=== PATIENT | female | born 1975 | race Caucasian/White ===

== ENCOUNTER 2024-12-22 19:25 | Emergency (ER) | payer OTHER, SELFPAY ==
--- OUTSIDE RECORDS SUMMARY | 2024-12-22 19:28 | XMS_ITS | Clinical Summary ---
Author Organization [employer] [facility] [employer] [facility] Address [place], [place] [address] Care Team Providers Care Pattern Drum Maker Name Role Phone Lauri Fry PsyD, JÚNIOR Unavailable [phone] Magda Zapien MD Primary Care Provi rashad Amira Uriarte RN Unavailable [phone] Bhargav Brennan TELE MARKETING EXECUTIVE Student Unavailable [phone] Allergies Active Allergy Reactions Criticality Noted Date Comments Doxycycline Edema 12/03/2006 Medications escitalopram oxalate (LEXAPRO) 20 mg tablet Take 30 mg by mouth once daily. Active dextroamphetamin e-amphetamine (AdderalL) 20 mg tablet Take 60 mg by mouth two times daily. Active dextroamphetamin e-amphetamine (Adderall XR) 30 mg Extended-Release capsule Take 30 mg by mouth once daily. Active albuterol sulfate 90 mcg/actuation aebs Inhale 90 mcg by mouth once daily if needed. Active Wheat Dextrin (Benefiber) 1 gram chew Chew 3 Each by mouth once daily. Active clotrimazole (LOTRIMIN) 1 % creamIndications :Candidal intertrigo Apply topically to affected area(s) two times daily. 45 g 3 Active multivitamins-ca ftgpl-ojfh-nftou als 27-0.4 mg tab tablet Take 1 Tablet by mouth once daily. Active topiramate (Topamax) 50 mg tablet Take 50 mg by mouth two times daily. Active diazePAM (VALIUM) 5 mg tablet TAKE 1 TABLET BY MOUTH UP TO TWICE DAILY NEEDED FOR PANIC OR ANXIETY 4 Active amLODIPine (NORVASC) 5 mg tabletIndication s:Hypertension, unspecified type Take 1 Tablet (5 mg) by mouth once daily. 90 Tablet 2 4 Active polyethylene glycol-electroly te (GOLYTELY) 236-22.74-6.74 -5.86 gram suspensionIndica tions:Encounter for screening colonoscopy Drink 2 liters (half the bottle) the day before colonoscopy and 2 liters (remaining prep) 6 hours prior to colonoscopy appointment. 4000 mL 5 Active Hospital, Clinic, or Other Facility Administered Medication Ordered Dose Route Frequency Start Date End Date Status etonogestrel subdermal implant (NEXPLANON) 1 EachIndications:Family planning 1 Each Sdrm Q 3 YEARS 12/25/2020 Active Active Problems Problem Noted Date Diagnosed Date Pap smear for cervical cancer screening 04/04/20 24 Overview (04/04/2024): 03/2024 NIL/HPV negative Plan: HPV based testing in 5 years Borderline personality disorder 09/09/2023 Right tennis elbow 03/20/2019 Bipolar 1 disorder 01/28/2019 Neurogenic pain of left foot 03/19/2018 Controlled substance agreement terminated 2016 Overview (05/16/2017): No longer on narcotics ADHD (attention deficit hype ractivity disorder), combined type 10/06/2016 Hx of cannabis abuse 04/22/2015 Generalized anxiety disorder 06/30/2012 Opioid Type Dependence, in Remission 07/22/2009 Resolved Problems Problem Noted Date Diagnosed Date Resolved Date Atherosclerosis of artery of both lower extremities 12/06/2023 12/21/2023 S/P trigger finger release 06/16/2020 0 12/21/2023 Major depressive disorder, r ecurrent episode, moderate 04/19/2019 12/21/2023 Generalized anxiety disorder 04/19/2019 12/07/2023 Trigger finger of left thumb 03/20/2019 12/21/2023 Thumb pain, left 03/20/2019 12/21/2023 Pain in finger of left hand 03/20/2019 12/21/2023 Mood disorder 01/28/2019 12/07/2023 Suicide ideation 01/28/2019 12/21/2023 Moderate episode of recurren t major depressive disorder 01/28/2019 12/21/2023 Controlled substance agreement signed 04/01/2017 01/29/2018 Overview (04/01/2017): Signed 11/29/16 Dr. Ashley Zhu, psychiatry/hc Bipolar II disorder 12/31/2015 12/21/19 24 Hx of opioid abuse 04/22/2015 5 Bipolar I disorder, single m anic episode, moderate 09/04/2014 12/31/2015 Cannabis dependence, continuous 07/22/2009 04/22/2015 Narcotic dependence, episodic use 12/11/2008 04/22/2015 Unspecified hypothyroidism 02/13/2007 0 02/19/2008 Dysthymic disorder 6 Other specified viral warts 01/29/2018 Trigger finger, left ring finger 12/21/2023 Encounters Date Type Department Care Team Description 12/21/2024 Telephone [facility] [address] [place] [address] Clinton Montes MD Appointment 12/18/2024 5:30 PM LOAN INTERVIEWER Orders Only [facility] [address] [place] [address] Lab, [facility] 12/18/2024 Travel 12/15/2024 2:11 PM LOAN INTERVIEWER - 12/15/2024 2:43 PM LOAN INTERVIEWER Emergency [facility] [address] [place] [address] Chi Castillo PA Discharge Disposition: Against Medical Advice or Discontinued Care 12/15/2024 Travel 12/14/2024 6:45 PM LOAN INTERVIEWER Orders Only [facility] [address] [place] [address] Lab, [facility] Lab 12/14/2024 6:05 PM LOAN INTERVIEWER Telemedicine [facility] [address] [place] [address] Alvina Elizalde NP parisitic infection; Telehealth 12/14/2024 Travel from Last 3 Months Immunizations Name Administration Dates Next Due COVID-19 vaccine ([employer] NTech 30mcg/0.3mL) PF, MDV 02/26/2021 Hepatitis B (Adult) 03/06/2007,10/19/2000,1996 Hepatitis B, Unspecified 03/06/2007 Influenza A (H1N1), Inactivated 11/14/2009 Influenza Virus, Unspecified 08/18/2016 Influenza, IIV3 (Age >=3 years) 08/19/20 16,08/28/2013,09/07/2011,2009 Influenza, IIV4 12/06/2023,,10/22/2021,2019,08/20/2019,08/01/2018,10/10/2017,1 12/06/2014 Pneumococcal Poly,23-Valent (Pneumovax) 10/22/2021 Td (Age >=7 Years) 11/19/2000 Tdap 02/01/2023,06/22/2011 Family History Medical History Relation Name Comments Alcohol/Drug Father Heart Disease Father chf Hyperlipidemia Father Hypertension Father Cancer-breast Maternal Aunt Thyroid Disease Maternal Aunt Thyroid Disease Maternal Uncle Hyperlipidemia Mother Thyroid Disease Mother Cancer Other 1 Leukemia Psychiatric illness Other 2 ADHD Anesthesia Problem No Family History Clotting disorder No Family History Relation Name Status Comments Brother Alive x2 Daughter Alive Father (Age 74) Maternal Aunt Maternal Grandfather Maternal Grandmother Maternal Uncle Mother Alive Other 1 Other 2 Paternal Grandfather Paternal Grandmother Social History Tobacco Use Types Packs/Day Years Used Date Smoking Tobacco: Every Day Cigarettes 0.8 36.9 Started: 1987; Last attempted to quit: 02/07/2007 Smokeless Tobacco: Never Tobacco Cessation:Ready to Q uit: No; Counseling Given: Not Answered Comments:1pack/day and smokes Alcohol Use Standard Drinks/Week Comments No 0 (1 standard drink = 0.6 oz pur e alcohol) PHQ-2 Answer Date Recorded PHQ-2 TOTAL SCORE 6 02/10/2024 Social Connections Answer Date Recorded Frequency of Communication with Friends and Fami ly 4 05/31/2023 Financial Resource Strain Answer Date R ecorded Difficulty of Paying Living Expenses Not on file 05/31/2023 Difficulty of Paying Living Expenses 3 05/31/2023 Food Insecurity Answer Date Recorded Worried About Running Out of Food in the Last Ye ar 1 05/31/2023 Transportation Needs Answer Date Record ed Lack of Transportation (Medical) 1 05/31/2023 Housing Stability Answer Date Recorded Unable to Pay for Housing in the Last Year 1 05/31/2023 Interpersonal Safety Answer Date Record ed Are you being hit, kicked, p ushed or yelled at (see row info)? 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 Not on file Not on file Not on file ssdi Not on file Not on file Not on file Obstetrics History Last Filed Vital Signs Vital Sign Reading Time Taken Comments Blood Pressure 136/86 12/15/2024 1:29 PM LOAN INTERVIEWER Pulse 93 12/15/2024 1:29 PM LOAN INTERVIEWER Temperature 36.6 C (97.8 F) 12/15/2024 1:29 PM LOAN INTERVIEWER Respiratory Rate 16 12/15/2024 1:29 PM LOAN INTERVIEWER Oxygen Saturation 98% 12/15/2024 1:29 PM LOAN INTERVIEWER Inhaled Oxygen Concentration - - Weight 91.2 kg (201 lb) 08/14/2024 11:10 PM CDT Height 162.6 cm (5' 4) 08/14/2024 11:10 PM CDT Body Mass Index 34.5 08/14/2024 11:10 PM CDT Plan of Treatment Upcoming Encounters Date Type Department Care Team (Late st Contact Info) Description 01/01/2025 10:40 AM LOAN INTERVIEWER Office Visit [facility] [address] [place] [address] Magda Zapien MD [address] [place] [address] 01/16/2025 8:30 AM CDT Office Visit [facility] [address] [place] [address] Clinton Montes MD [address] [facility] [place] [address] 01/22/2025 10:15 AM CDT Office Visit [facility] [address] [place] [address] Magda Zapien MD [address] [place] [address] Health Maintenance Due Date Last Done Comments Colonoscopy through age 75 2022 Pneumococcal series for age 6-49 (2 of 2 - PCV) 10/22/2022 10/22/2021 Lipids for age 45-75 06/28/2024 06/28/2019 COVID-19 vaccine series (2 - 2023- season) 2024 02/26/2021 Influenza for age 9-49 07/08/2024 , 08/31/2022, 10/22/2021, Additional history exists BMI (ht and wt on same day) for age 18+ 12/04/2024 12/04/2023, 07/15/2023, 02/16/2021, Additional history exists Depression screening for age 12+ 02/09/2025 02/10/2024, 09/15/2023, 09/14/2023, Additional history exists Mammogram for age 45-75 03/01/2025 03/01/2024 Pap test for age 21-65 03/19/2029 , 03/19/2024, 11/26/2016, Additional history exists Tetanus booster 02/01/2033 02/01/2023, 06/07, 11/19/2000 Tdap Completed 02/01/2023, 06/22/2011 HIV for age 15-65 Completed 09/14/2023 Hepatitis C screening for ag e 18-79 Completed 09/14/2023 Medical Devices Implanted Type Area Reliability Technician Device Identifier Shelf Expiration Date Model / Serial / Lot [id number] - [id number] Implanted:Qty: 1 on 04/19/2016 by Galo Sims DPM at [facility] Left: Foot [employer] [id number] / / Description:2.7mm curved caleb clayton left 43mm 5 hole [id number] - [id number] Implanted:Qty: 1 on 04/19/2016 by Galo Sims DPM at [facility] Left: Foot [employer] SV26 / / Description:2.5MM X26MM SCRE W, TITANIUM [id number] - [id number] Implanted:Qty: 1 on 04/19/2016 by Galo Sims DPM at [facility] Left: Foot 40 / / Description:2.7MM LOCKING SC REWS, T7 14MM [id number] - [id number] Implanted:Qty: 2 on 04/19/2016 by Galo Sims DPM at [facility] Left: Foot [employer] 40 / / Description:2.7MM LOCKING SC REWS, T7 16MM [id number] - [id number] Implanted:Qty: 1 on 04/19/2016 by Galo Sims DPM at [facility] Left: Foot [employer] 40 / / Description:2.7MM LOCKING SC REWS, T7 18MM [id number] - [id number] Implanted:Qty: 2 on 04/19/2016 by Galo Sims DPM at [facility] Left: Foot [employer] / / Description:2.0MM X12MM SCRE W [facility]0-p - [id number] Implanted:Qty: 1 on 04/19/2016 by Galo Sims DPM at [facility] Left: Foot [employer] 01/04/2021 [id number] / / [id number] Description:SMART TOE II 19M M/0 DEGREE ANGLE FOR PIP ARTHRODESIS INTRAMEDULLARY ARTHRODESIS IMPLANT Procedures Procedure Name Priority Date/Time Associated Diagnosis Comments STOOL PATHOGEN MULTIPLEX PCR PANEL Routine 12/19/2024 1:50 PM LOAN INTERVIEWER Abnormal stools HPV HIGH RISK Routine 03/19/2024 12:19 PM CDT Encounter for screening for cervical cancer XR MAMMO BILAT SCREENING Routine 03/01/2024 4:19 PM CDT Screening mammogram for breast cancer ANTI HIV 1/2 Routine 09/14/2023 3:50 PM LOAN INTERVIEWER Livedo reticularis ANTI HCV Routine 09/14/2023 3:50 PM LOAN INTERVIEWER Livedo reticularis LIPID PANEL W REFLEX MEASURED LDL Routine 06/28/2019 3:53 PM CDT Elevated blood pressure reading without diagnosis of hypertension from Last 3 Months or Most Recently Relevant to Health Maintenance Results * STOOL PATHOGEN MULTIPLEX PCR PANEL [[id number]] (12/19/2024 1:50 PM LOAN INTERVIEWER) Campylobacter NOT Detected NOT Detected 12/21/2024 1:00 AM [facility] Salmonella NOT Detected NOT Detected 12/21/2024 1:00 AM [facility] Shigella NOT Detected NOT Detected 12/21/2024 1:00 AM LOAN INTERVIEWER [facility] Vibrio NOT Detected NOT Detected 12/21/2024 1:00 AM LOAN INTERVIEWER [facility] Yersinia Enterocolitica NOT Detected NOT Detected 12/21/2024 1:00 AM LOAN INTERVIEWER [facility] Shiga Toxin 1 NOT Detected NOT Detected 12/21/2024 1:00 AM [facility] Shiga Toxin 2 NOT Detected NOT Detected 12/21/2024 1:00 AM [facility] Norovirus NOT Detected NOT Detected 12/21/2024 1:00 AM [facility] Rotavirus NOT Detected NOT Detected 12/21/2024 1:00 AM LOAN INTERVIEWER [facility] Stool STOOL SPECIMEN / Unknown Non-Blood / Unknown 12/19/2024 1:50 PM LOAN INTERVIEWER 12/14/2024 8:00 PM LOAN INTERVIEWER Narrative [facility] - 12/21/2024 1:00 AM LOAN INTERVIEWER This test is a Culture Independent Diagnostic Test (CIDT) therefore isolates are not available for susceptibility testing. Antibiotic treatment is often contraindicated and may be detrimental in cases of enteric infections, thus routine susceptibility testing is not recommended. Alvina Elizalde NP MICROBIOLOGY Final Result Performing Organization Address [facility] Co de Phone Number [facility] [address] [place] [address], * HPV HIGH RISK (03/19/2024 12:19 PM CDT) TYPE 16 Negative Negative 03/21/2024 4:51 PM CDT [facility] TYPE 18 Negative Negative 03/21/2024 4:51 PM CDT [facility] OTHER HIGH RISK TYPES Negative Negative 03/21/2024 4:51 PM CDT [facility] Other (Cervical) Non-Blood / Unknown 03/19/2024 12:19 PM CDT 03/20/2024 11:26 AM CDT Narrative [facility] - 03/21/2024 4:51 PM CDT HPV types 16, 18, 31, 33, 35, 39, 45, 51, 52, 56, 58, 59, 66 and 68 DNA were undetectable or below the pre-set threshold. Methodology: Aayush Simeon 4800 HPV Test us Magda Zapien MD MICROBIOLOGY Fin al Result Performing Organization Address City/[facility]/ZIP Co de Phone Number [facility] [address] [place] [id number], * XR MAMMO BILAT SCREENING (03/01/2024 4:19 PM CDT) Anatomical Region Laterality Modality BREASTS, Breast Left, Breast Right Bilateral Mammography Impressions 03/02/2024 8:03 AM CDT There is no radiographic evidence for malignancy. Recommend annual mammograms. MAMMOGRAM ASSESSMENT: ACR 1 Negative PATIENTS: You will also receive a letter with your examination results in an easy to read format. If you have questions about your results, please contact your referring provider. Narrative 03/02/2024 8:03 AM CDT For Patients: As a result of the Century Cures Act, medical imaging exams and procedure reports are released immediately into your electronic medical record. You may view this report before your referring provider. If you have questions, please contact your health care provider. XR MAMMO BILAT SCREENING [[id number]] CLINICAL HISTORY: This is an asymptomatic 48 y.o. patient. INDICATION FOR EXAM: Mammogram Screening. TECHNIQUE: CC & MLO views were obtained. This study was evaluated with the assistance of Computer-Aided Detection. COMPARISON FILM: This is a baseline study. FINDINGS: The breasts have scattered areas of fibroglandular density. There are no dominant masses, suspicious micro calcifications or areas of architectural distortion. Magda Zapien MD MAMMO Fin al Result * ANTI HCV (09/14/2023 3:50 PM LOAN INTERVIEWER) HEPATITIS C ANTIBODY Non-Reacti ve Non-React omer 09/15/2023 5:51 AM LOAN INTERVIEWER [facility] Comment:Please note, per www .CDC.gov: If a patient is known to be at high risk of HCV infection, or is symptomatic, and the physician's suspicion of HCV infection is high, HCV RNA testing is often employed and is of diagnostic value, even after an initial negative anti-HCV test result. Blood BLOOD SPECIMEN / Unknown Venipuncture / Unknown 09/14/2023 3:50 PM LOAN INTERVIEWER 09/14/2023 3:52 PM LOAN INTERVIEWER Austyn Jones DO SEND OUTS Final Resul t [facility] [address] [place] [address], * ANTI HIV 1/2 (09/14/2023 3:50 PM LOAN INTERVIEWER) HIV-1/HIV-2 SCREEN Non-Reacti ve Non-Reacti ve 09/15/2023 6:00 AM LOAN INTERVIEWER [facility] Comment:HIV-1 p24 and HIV-1/ HIV-2 Ab Not Detected. Blood BLOOD SPECIMEN / Unknown Venipuncture / Unknown 09/14/2023 3:50 PM LOAN INTERVIEWER 09/14/2023 3:52 PM LOAN INTERVIEWER us Austyn Jones DO SEND OUTS Final Resul t [facility] [address] [place] [address], * (ABNORMAL) LIPID PANEL W REFLEX MEASURED LDL (06/28/2019 3:53 PM CDT) CHOLESTEROL,TOTAL 209(H) 100 - 199 mg/dL 06/28/2019 4:45 PM CDT [facility] TRIGLYCERIDES 103 <150 mg/dL 06/28/2019 4:45 PM CDT [facility] HDL CHOLESTEROL 46 >40 mg/dL 9 4:45 PM CDT [facility] NON-HDL CHOLESTEROL 163(H) <145 mg/dl 06/28/2019 4:45 PM CDT [facility] CHOL/HDL RATIO 4.54(H) <4.50 06/28/2019 4:45 PM CDT [facility] LDL CHOLESTEROL 142(H) <=130 mg/dL 06/28/2019 4:45 PM CDT [facility] PROVIDER ORDERED STATUS RANDOM 06/28/2019 4:45 PM CDT [facility] Blood BLOOD SPECIMEN / Unknown Venipuncture / Unknown 06/28/2019 3:53 PM CDT 06/28/2019 3:53 PM CDT us Jamal Wilson MD CHEMISTRY Final Result [facility] [address] [place] [address] from Last 3 Months or Most Recently Relevant to Health Maintenance Insurance BLUE CROSS OF NON-AL-ITS MEDICARE ADVANTAGE MR MEDICARE PART A HB ONLY Advance Directives * Full Code (Latest Code Status on File) Date Activated Date Inactivated Comments 06/03/2020 9:05 AM 06/03/2020 1:33 PM * Full Code Date Activated Date Inactivated Comments 09/24/2019 9:02 AM 09/24/2019 4:06 PM * Full Code Date Activated Date Inactivated Comments 01/27/2019 6:51 PM 02/01/2019 7:17 PM * Full Code Date Activated Date Inactivated Comments 10/05/2016 2:49 PM 10/06/2016 2:14 PM * Full Code Date Activated Date Inactivated Comments 04/19/2016 3:17 PM 04/19/2016 11:39 PM Question Answer Comments Code Status Discussion: Not Discussed Care Teams Pattern Drum Maker Relationship Specialty Start Date End Date Magda Zapien MD [address] [place] [address] PCP - General Family Practice 06/07/23 Lauri Fry, [employer]ro[employer], LP [address] [place] [address] Licensed Psychologist 06/20/12 Amira Uriarte, KANDY [address] [place] [address] Registered Nurse Registered Nurse 01/04/24 Bhargav Brennan, TELE MARKETING EXECUTIVE Student [address] [place] [address] Psychiatry 01/13/24
[2024-12-22 19:36] VITALS: BP 150/80; PULSE 89; RESP 18; TEMP 36.7; O2SAT 99; BMI 34.3
--- NOTE | 2024-12-22 20:00 | ED.GENADULT ---
HPI - General Adult General Chief complaint: Abdominal Pain Stated complaint: Potential damage to intestinal tract Time Seen by Provider: 12/22/24 20:00 History of Present Illness HPI narrative: CC: Rectal Clots, Abdominal Cramping pt. did enema today and had clot come out. abdominal cramping. denies fevers, n/v/, diarrhea. 49 year old woman presenting to the Department with numerous complaints. She is carefully recorded in a notebook a history at least as far back as November 28. Around this time she had given herself an enema. Subsequently began to produce some vaginal bleeding as I understand it with repeated quarter-size clots or so. She said it seemed atypical would not have corresponded with her. Did ultimately subside and then began bleeding again. She does struggle with what sounds like chronic fatigue. Does understand why she is so tired. In early December I believe week later did have a rather unusual bowel movement where she was concerned there might be worms in it. Looked like pile of mushrooms. Worried she might have parasites may be from her who has had a stroke and struggles with fecal incontinence. She subsequently had an appointment with a virtual provider. Used her 's fecal collection kit; he however has chronic diarrhea, and took it in and with orders placed by the virtual physician. Was later informed that the clinic could not process what she had actually brought in. Early December also had a dental appointment. Had a dental extraction and just finished a course of amoxicillin for an apparent dental abscess. She has shocks of pain throughout her abdomen various locations and even mid sternum or left neck/jaw. As gestured one of these areas was the area I believe of the extraction. She notes she has [place] areas on Her body corresponding with these pains. Has not noted a fever. Regarding lab work, notes that she typically has elevated lymphocytes. Also mentions that feels that has unusually dry hands. I believe dry mouth as well. She did go to area emergency department about a week ago but after long wait she left. As noted it appears that she has had years of abdominal pain and has had evaluations at various times she reports feeling often dismissed. Does not sound as though gets regular quality sleep. Medications currently include amlodipine, Lexapro and Celexa she says, Adderall, Topamax for mood stabilization I see venlafaxine also listed. Valium she also notes as occasional medication for when I feel like I want to burn the house down also takes probiotic Related Data Home Medications ?Medication ?Instructions ?Recorded ?Confirmed amlodipine 5 mg tablet 5 mg PO DAILY 12/22/24 12/22/24 dextroamphetamine-amphetamine 20 1 tab PO BID 12/22/24 12/22/24 mg tablet dextroamphetamine-amphetamine ER 1 cap PO QAM 12/22/24 12/22/24 30 mg 24hr capsule,extend release escitalopram oxalate 20 mg tablet 30 mg PO DAILY 12/22/24 12/22/24 topiramate 50 mg tablet 50 mg PO QAM 12/22/24 12/22/24 venlafaxine 75 mg capsule,extended 75 mg PO DAILY 12/22/24 12/22/24 release 24 hr Previous Rx's ?Medication ?Instructions ?Recorded omeprazole 40 mg capsule,delayed 40 mg PO DAILY #15 caps 12/23/24 release Allergies Allergy/AdvReac Type Severity Reaction Status Date / Time No Known Drug Allergies Allergy Verified 12/22/24 19:38 Review of Systems Status of ROS: Reports: 6 or more systems reviewed and unremarkable except as noted in History and below [facility] Medical History ADHD (attention deficit hyperactivity disorder) ?F90.9 - Attention-deficit hyperactivity disorder, unspecified type (ICD-10) Bipolar 1 disorder ?F31.9 - Bipolar disorder, unspecified (ICD-10) Borderline personality disorder ?F60.3 - Borderline personality disorder (ICD-10) ALEXANDRA (generalized anxiety disorder) ?F41.1 - Generalized anxiety disorder (ICD-10) Dysthymic disorder ?F34.1 - Dysthymic disorder (ICD-10) Surgical History S/P right knee arthroscopy ?Z98.890 - Other specified postprocedural states (ICD-10) History of carpal tunnel release ?Z98.890 - Other specified postprocedural states (ICD-10) S/P bunionectomy ?Z98.890 - Other specified postprocedural states (ICD-10) S/P trigger finger release ?Z98.890 - Other specified postprocedural states (ICD-10) Social History Smoking Status: Current every day smoker What tobacco products do you use: cigarettes Second hand tobacco smoke exposure: Yes How often do you have a drink containing alcohol: never AUDIT-C Alcohol total score: 0 Non-prescribed substance use: denies use Exam Narrative: Exam Narrative: Appears concerned. Verbose. Skin is warm and dry. She has areas [place] degree marker various locations on her belly and also right low back. She is sore to palpation of bilateral SI joints. Gabbi's however is negative. Abdomen on initial palpation is mildly uncomfortable but with repeat exam is quite benign. Soft. Normoactive bowel sounds. No masses appreciated. Lungs appear clear. Heart in regular rate and rhythm. Oropharynx is sticky. Has a bottle of Coke Zero close by. Is well-perfused in extremities. No lower extremity edema. Hands look somewhat erythematous, strong. Look to have been exposed to cold, chapped. Skin otherwise with various tattoos. Const: Vital Signs, click to edit/add: Vital Signs - 24 hr 12/22/24 19:36 12/22/24 20:39 Pulse Rate [Right Pulse Oximeter] 89 Respiratory Rate 18 Blood Pressure [Ri ght Upper Arm] 150/80 H Pulse Oximetry 99 99 Oxygen Delivery Me thod Room Air Documenting provider has reviewed patient's vital signs: yes Course Vital Signs Vital signs: Initial Vital Signs Temperature 98.1 F 12/22/24 19:36 Temperature Source Temporal Artery Scan 12/22/24 19:36 Pulse Rate 89 12/22/24 19:36 Respiratory Rate 18 12/22/24 19:36 Blood Pressure 150/80 H 12/22/24 19:36 Blood Pressure Mean 103 12/22/24 19:36 Blood Pressure Position Sitting 12/22/24 19:36 Pulse Oximetry 99 12/22/24 19:36 Oxygen Delivery Method Room Air 12/22/24 19:36 Vital Signs Temperature 98.1 F 12/22/24 19:36 Pulse Rate 89 12/22/24 19:36 Respiratory Rate 18 12/22/24 19:36 Blood Pressure 150/80 H 12/22/24 19:36 Pulse Oximetry 99 12/22/24 19:36 Oxygen Delivery Method Room Air 12/22/24 19:36 Temperature 98.1 F 12/23/24 01:56 Pulse Rate 81 12/23/24 01:56 Respiratory Rate 18 12/23/24 01:56 Blood Pressure 125/70 12/23/24 01:56 Pulse Oximetry 99 12/23/24 00:00 Oxygen Delivery Method Room Air 12/23/24 00:00 Medical Decision Making MDM Narrative Medical decision making narrative: Appears to have more struggles related to chronic fatigue and irritable bowel. Might be medication related considering SSRIs. She does mention that she has as of yesterday I believe scheduled a colonoscopy. This has never occurred before. I think this is an excellent start. She is thinking maybe she needs some imaging of her abdomen when I inquire about what more I can do. Unclear when had last laboratory evaluation I ask her about doing a pelvic exam looking for bleeding that she had noted but she declines this noting that she had a recent normal Pap at least in September of last year. Does not appear that this bleeding is excessive at this time. I inquired about but comes whether not she would like with some concern of all anoscopy exam is or soon concern of rectal bleeding she described as well and she says no; she states she can feel a bump there she thinks all might be related? This is after I inquired about hemorrhoids. Offered IV hydration. Ultimately not done. With constellation of symptoms I proposed querying labs before trying to direct imaging. Labs were unremarkable. Pending was vitamin-D level and stool sample should she choose to bring one in. Slept during time in the emergency department. Appeared more relaxed, comfortable when woken. Discussed lack of findings and potential differential. Is amenable to proceed with colonoscopy and outpatient workup. See patient discharge plan for further discussion I would offer you reassurance at this point based on your labs and physical exam. I am happy you have good relationship with Dr. Montes and have already arranged for colonoscopy. I think that is ideal imaging for your concerns. Please follow-up with your primary care provider as well to discuss next steps in evaluation. I would do medication review particularly as you mentioned you are taking 2 SSRIs. As discussed can certainly prescribe proton pump inhibitor like omeprazole for 2 weeks that you might try and reassess at that point. You might have some degree of sacral iliac joint pain. See handout for some exercises/treatment that might be beneficial. Was a pleasure taking care of you today. Lab Data Lab results reviewed: Yes I reviewed the patient's lab results Labs: Lab Results 12/22/24 12/22/24 Range/Units 20:33 20:37 WBC 11.22 H (4.50-11.00) K/uL RBC 4.30 (4.00-5.20) m/uL Hgb 12.8 (12.0-16.0) gm/dL Hct 38.1 (33.0-51.0) % MCV 89 (80-100) fL MCH 30 (26-34) pg MCHC 34 (32-36) gm/dL RDW Coeff of Zi 13.5 (11.5-15.5) % Plt Count 239 (140-440) K/uL Neut % (Auto) 66.4 (42.0-72.0) % Lymph % (Auto) 25.3 (20-44) % Hughes % (Auto) 5.9 (0.0-11.0) % Eos % (Auto) 1.9 (0.0-7.0) % Baso % (Auto) 0.4 (0.0-3.0) % Neut # (Auto) 7.50 H (1.7-7.0) K/uL Lymph # (Auto) 2.80 (0.90-2.90) K/uL Hughes # (Auto) 0.70 (0.00-0.90) K/UL Eos # (Auto) 0.20 (0.00-0.50) K/uL Baso # (Auto) 0.00 (0.00-0.30) K/uL Abs Immat Gran (auto) 0.00 (0.00-0.30) K/uL Imm/Tot Granulo (auto) 0.1 % ESR 11 (2-20) mm/hr Sodium 137 (135-149) mmol/L Potassium 3.5 L (3.6-5.1) mmol/L Chloride 104 (96-114) mmol/L Carbon Dioxide 25 (20-32) mmol/L Anion Gap 8 (7-15) mEq/L BUN 14 (5-24) mg/dL Creatinine 0.8 (0.5-1.5) mg/dL Estimated Creat Clear 75.07 Estimated GFR 91 ml/min Glucose 94 (60-115) mg/dL Calcium 9.0 (8.4-10.6) mg/dL Magnesium 2.2 (1.5-2.6) mg/dL Total Bilirubin 0.4 (0.1-1.5) mg/dL Direct Bilirubin 0.2 (0.0-0.5) mg/dL AST 26 (12-35) U/L ALT 27 (4-35) U/L Alkaline Phosphatase 57 (40-150) U/L C-Reactive Protein 0.6 (0.5-1.0) mg/dL Total Protein 7.1 (6.0-8.3) g/dL Albumin 4.4 (3.3-5.0) g/dL Lipase 129 (23-300) U/L 25-OH Vitamin D Total 45 (30-80) ng/mL TSH 2.460 (0.270-4.20) uIU/mL Lab Acknowledgement Test Added Discharge Plan Discharge Clinical Impression: Dysfunctional uterine bleeding, Irritable bowel, Fatigue Patient Disposition: Home, Self-Care Condition: Stable Additional Instructions: I would offer you reassurance at this point based on your labs and physical exam. I am happy you have good relationship with Dr. Montes and have already arranged for colonoscopy. I think that is ideal imaging for your concerns. Please follow-up with your primary care provider as well to discuss next steps in evaluation. I would do medication review particularly as you mentioned you are taking 2 SSRIs. As discussed can certainly prescribe proton pump inhibitor like omeprazole for 2 weeks that you might try and reassess at that point. You might have some degree of sacral iliac joint pain. See handout for some exercises/treatment that might be beneficial. Was a pleasure taking care of you today. Prescriptions: New omeprazole 40 mg capsule,delayed release(DR/EC) 40 mg PO DAILY Qty: 15 0RF No Action venlafaxine 75 mg capsule,extended release 24hr 75 mg PO DAILY amlodipine 5 mg tablet 5 mg PO DAILY dextroamphetamine-amphetamine 20 mg tablet 1 tab PO BID dextroamphetamine-amphetamine 30 mg capsule,extended release 24hr 1 cap PO QAM escitalopram oxalate 20 mg tablet 30 mg PO DAILY topiramate 50 mg tablet 50 mg PO QAM Follow Up/Referrals: Provider,Not a Local [Non-Staff] - Stand Alone Forms: [employer] Info Instructions
[2024-12-22 20:39] VITALS: O2SAT 99
[2024-12-22 21:00] LABS: Basophils Percent Auto 0.4 % (0.0-3.0); Eosinophils Percent Auto 1.9 % (0.0-7.0); Hematocrit 38.1 % (33.0-51.0); Hemoglobin* 12.8 gm/dL (12.0-16.0); Immature Granulocytes Pct Auto 0.1 %; Lymphocytes Percent Auto 25.3 % (20-44); Mean Corpuscular HGB Conc 34 gm/dL (32-36); Mean Corpuscular Hemoglobin 30 pg (26-34); Mean Corpuscular Volume 89 fL (80-100); Monocytes Percent Auto 5.9 % (0.0-11.0); Neutrophils Percent Auto 66.4 % (42.0-72.0); Platelet Count* 239 K/uL (140-440); RDW Coefficient of Variation % 13.5 % (11.5-15.5); White Blood Count* 11.22 K/uL (4.50-11.00)
[2024-12-22 21:12] LABS: Albumin* 4.4 g/dL (3.3-5.0); Chloride* 104 mmol/L (96-114)
[2024-12-22 21:13] LABS: Potassium* 3.5 mmol/L (3.6-5.1); Sodium* 137 mmol/L (135-149)
[2024-12-22 21:15] LABS: Alkaline Phosphatase* 57 U/L (40-150); Anion Gap 8 mEq/L (7-15); Aspartate Amino Transferase* 26 U/L (12-35); Bilirubin Direct* 0.2 mg/dL (0.0-0.5); Bilirubin Total* 0.4 mg/dL (0.1-1.5); Blood Urea Nitrogen* 14 mg/dL (5-24); Carbon Dioxide* 25 mmol/L (20-32); Creatinine* 0.8 mg/dL (0.5-1.5); Est. Creatinine Clearance* 75.07; Estimated Glomerular Filt Rate 91 ml/min; Glucose* 94 mg/dL (60-115); Total Protein* 7.1 g/dL (6.0-8.3)
[2024-12-22 21:16] LABS: Alanine Aminotransferase* 27 U/L (4-35); Magnesium* 2.2 mg/dL (1.5-2.6)
--- OUTSIDE RECORDS SUMMARY | 2024-12-22 21:16 | XMS_ITS | Clinical Summary ---
Author Organization [facility] Address [place], [place] [address] Care Team Providers Care Refractory Furnace Designer Name Role Phone Lauri Fry PsyD, JNÚIOR Unavailable [phone] Magda Zapien MD Primary Care Provi rashad Amira Uriarte RN Unavailable [phone] Bhargav Brennan WAGON DRILL OPERATOR Student Unavailable + [phone] Allergies Active Allergy Reactions Criticality Noted Date [...] times daily. 45 g 3 Active multivitamins-ca oovpi-skjc-dhafj als 27-0.4 mg tab tablet Take 1 [...] Type Department Care Team Description 12/21/2024 Telephone [facility] [address] [place] [address] Clinton Montes MD Appointment 12/18/2024 5:30 PM DRY END TESTER Orders Only [facility] [address] [place] [address] Lab, [facility] 12/18/2024 Travel 12/15/2024 2:11 PM DRY END TESTER - 12/15/2024 2:43 PM DRY END TESTER Emergency [facility] [address] [place] [address] Chi Castillo PA Discharge Disposition: Against Medical Advice or Discontinued Care 12/15/2024 Travel 12/14/2024 6:45 PM DRY END TESTER Orders Only [facility] [address] [place] [address] Lab, 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 Not on file Not on file Not on file ssdi Not on file Not on file Not on file Obstetrics History Last Filed Vital Signs Vital Sign Reading Time Taken Comments Blood Pressure 136/86 12/15/2024 1:29 PM DRY END TESTER Pulse 93 12/15/2024 1:29 PM DRY END TESTER Temperature 36.6 C (97.8 F) 12/15/2024 1:29 PM DRY END TESTER Respiratory Rate 16 12/15/2024 1:29 PM DRY END TESTER Oxygen Saturation 98% 12/15/2024 1:29 PM DRY END TESTER Inhaled Oxygen Concentration - - Weight 91.2 kg (201 lb) 08/14/2024 11:10 PM CDT Height 162.6 cm (5' 4) 08/14/2024 11:10 PM CDT Body Mass Index 34.5 08/14/2024 11:10 PM CDT Plan of Treatment Upcoming Encounters Date Type Department Care Team (Late st Contact Info) Description 01/01/2025 10:40 AM DRY END TESTER Office Visit [facility] [address] [place] [address] Magda Zapien MD [address] [place] [address] 01/16/2025 8:30 AM CDT Office Visit [facility] [address]ated [place] [address] Clinton Montes MD [address] [facility] [place] [address] 01/22/2025 10:15 AM CDT Office Visit [facility] [address] [place] [address] Magda Zapien MD [address] [place] [address] Health Maintenance Due Date Last Done Comments [...] Completed 09/14/2023 Medical Devices Implanted Type Area Vocational Auto Body Instructor Device Identifier Shelf Expiration Date Model / Serial / Lot [id number] - [id number] Implanted:Qty: 1 on 04/19/2016 by Galo Sims DPM at [facility] Left: Foot [employer] [id number] / / Description:2.7mm curved caleb clayton left 43mm 5 hole Msv26 - [id number] Implanted:Qty: 1 on 04/19/2016 by Galo Sims DPM at [facility] Left: Foot [employer] SV26 / / Description:2.5MM X26MM SCRE W, TITANIUM [id number] - [id number] Implanted:Qty: 1 on 04/19/2016 by Galo Sims DPM at [facility] Left: Foot 40 / / Description:2.7MM LOCKING SC REWS, T7 14MM [id number] - [id number] Implanted:Qty: 2 on 04/19/2016 by Galo Sims DPM at [facility] Left: Foot [employer] 40 / / Description:2.7MM LOCKING SC REWS, T7 16MM [id number] - [id number] Implanted:Qty: 1 on 04/19/2016 by Galo Sims DPM at [facility] Left: Foot [employer] 40 / / Description:2.7MM LOCKING SC REWS, T7 18MM [id number] - [id number] Implanted:Qty: 2 on 04/19/2016 by Galo Sims DPM at [facility] Left: Foot [employer] / / Description:2.0MM X12MM SCRE W [facility]0-p - [id number] Implanted:Qty: 1 on 04/19/2016 by Galo Sims DPM at [facility] Left: Foot [employer] 01/04/2021 [id number] / / [id number] Description:SMART TOE II 19M M/0 DEGREE ANGLE FOR PIP ARTHRODESIS INTRAMEDULLARY ARTHRODESIS IMPLANT Procedures Procedure Name Priority Date/Time Associated Diagnosis Comments STOOL PATHOGEN MULTIPLEX PCR PANEL Routine 12/19/2024 1:50 PM DRY END TESTER Abnormal stools HPV HIGH RISK Routine 03/19/2024 12:19 PM CDT Encounter for screening for cervical cancer XR MAMMO BILAT SCREENING Routine 03/01/2024 4:19 PM CDT Screening mammogram for breast cancer ANTI HIV 1/2 Routine 09/14/2023 3:50 PM DRY END TESTER Livedo reticularis ANTI HCV Routine 09/14/2023 3:50 PM DRY END TESTER Livedo reticularis LIPID PANEL W REFLEX MEASURED LDL Routine 06/28/2019 3:53 PM CDT Elevated blood pressure reading without diagnosis of hypertension from Last 3 Months or Most Recently Relevant to Health Maintenance Results * STOOL PATHOGEN MULTIPLEX PCR PANEL [[id number]] (12/19/2024 1:50 PM DRY END TESTER) Campylobacter NOT Detected NOT Detected 12/21/2024 1:00 AM [facility] Salmonella NOT Detected NOT Detected 12/21/2024 1:00 AM [facility] Shigella NOT Detected NOT Detected 12/21/2024 1:00 AM DRY END TESTER [facility]- N[facility]AL LAB[facility]ATORY Vibrio NOT Detected NOT Detected 12/21/2024 1:00 AM DRY END TESTER [facility] Yersinia Enterocolitica NOT Detected NOT Detected 12/21/2024 1:00 AM DRY END TESTER [facility] Shiga Toxin 1 NOT Detected NOT Detected 12/21/2024 1:00 AM [facility] Shiga Toxin 2 NOT Detected NOT Detected 12/21/2024 1:00 AM [facility] Norovirus NOT Detected NOT Detected 12/21/2024 1:00 AM [facility] Rotavirus NOT Detected NOT Detected 12/21/2024 1:00 AM DRY END TESTER [facility] Stool STOOL SPECIMEN / Unknown Non-Blood / Unknown 12/19/2024 1:50 PM DRY END TESTER 12/14/2024 8:00 PM DRY END TESTER Narrative [facility] - 12/21/2024 1:00 AM DRY END TESTER This test is a Culture Independent Diagnostic Test (CIDT) therefore isolates are not available for susceptibility testing. Antibiotic treatment is often contraindicated and may be detrimental in cases of enteric infections, thus routine susceptibility testing is not recommended. Alvina Elizalde NP MICROBIOLOGY Final Result Performing Organization Address [facility] Co de Phone Number [facility] [address] [place] [address], * HPV HIGH RISK (03/19/2024 12:19 PM CDT) TYPE 16 Negative Negative 03/21/2024 4:51 PM CDT [facility] TYPE 18 Negative Negative 03/21/2024 4:51 PM CDT [facility] OTHER HIGH RISK TYPES Negative Negative 03/21/2024 4:51 PM CDT [facility] Other (Cervical) Non-Blood / Unknown 03/19/2024 12:19 PM CDT 03/20/2024 11:26 AM CDT Narrative [facility] - 03/21/2024 4:51 PM CDT HPV types 16, 18, 31, 33, 35, 39, 45, 51, 52, 56, 58, 59, 66 and 68 DNA were undetectable or below the pre-set threshold. Methodology: Aayush Simeon 4800 HPV Test us Magda Zapien MD MICROBIOLOGY Fin al Result Performing Organization Address City/[facility]/ZIP Co de Phone Number [facility] [address] [place] [id number], * XR MAMMO BILAT SCREENING (03/01/2024 4:19 [...] health care provider. XR MAMMO BILAT SCREENING [[id number]] CLINICAL HISTORY: This is an asymptomatic 48 [...] Result * ANTI HCV (09/14/2023 3:50 PM DRY END TESTER) HEPATITIS C ANTIBODY Non-Reacti ve Non-React omer 09/15/2023 5:51 AM DRY END TESTER [facility] Comment:Please note, per www .CDC.gov: If a patient is known to be at high risk of HCV infection, or is symptomatic, and the physician's suspicion of HCV infection is high, HCV RNA testing is often employed and is of diagnostic value, even after an initial negative anti-HCV test result. Blood BLOOD SPECIMEN / Unknown Venipuncture / Unknown 09/14/2023 3:50 PM DRY END TESTER 09/14/2023 3:52 PM DRY END TESTER Austyn Jones DO SEND OUTS Final Resul t [facility] [address] [place] [address], * ANTI HIV 1/2 (09/14/2023 3:50 PM DRY END TESTER) HIV-1/HIV-2 SCREEN Non-Reacti ve Non-Reacti ve 09/15/2023 6:00 AM DRY END TESTER [facility] Comment:HIV-1 p24 and HIV-1/ HIV-2 Ab Not Detected. Blood BLOOD SPECIMEN / Unknown Venipuncture / Unknown 09/14/2023 3:50 PM DRY END TESTER 09/14/2023 3:52 PM DRY END TESTER us Austyn Jones DO SEND OUTS Final Resul t [facility] [address] [place] [address], * (ABNORMAL) LIPID PANEL W REFLEX MEASURED LDL (06/28/2019 3:53 PM CDT) CHOLESTEROL,TOTAL 209(H) 100 - 199 mg/dL 06/28/2019 4:45 PM CDT [facility] TRIGLYCERIDES 103 <150 mg/dL 06/28/2019 4:45 PM CDT [facility] HDL CHOLESTEROL 46 >40 mg/dL 9 4:45 PM CDT [facility] NON-HDL CHOLESTEROL 163(H) <145 mg/dl 06/28/2019 4:45 PM CDT [facility] CHOL/HDL RATIO 4.54(H) <4.50 06/28/2019 4:45 PM CDT [facility] LDL CHOLESTEROL 142(H) <=130 mg/dL 06/28/2019 4:45 PM CDT [facility] PROVIDER ORDERED STATUS RANDOM 06/28/2019 4:45 PM CDT [facility] Blood BLOOD SPECIMEN / Unknown Venipuncture / Unknown 06/28/2019 3:53 PM CDT 06/28/2019 3:53 PM CDT us Jamal Wilson MD CHEMISTRY Final Result [facility] [address] [place] [address] from Last 3 Months or Most Recently Relevant to Health Maintenance Insurance BLUE CROSS OF NON-RI-ITS MEDICARE ADVANTAGE MR MEDICARE PART A HB [...] Code Status Discussion: Not Discussed Care Teams Refractory Furnace Designer Relationship Specialty Start Date End Date Magda Zapien MD [address] [place] [address] PCP - General Family Practice 06/07/23 Lauri Fry, AroldoyD, LP [address] [place] [address] Licensed Psychologist 06/20/12 Amira Uriarte, KNADY [address] [place] [address] Registered Nurse Registered Nurse 01/04/24 Bhargav Brennan, WAGON DRILL OPERATOR Student [address] [place] [address] Psychiatry 01/13/24
[2024-12-22 21:23] LABS: Slide Review Reflex No
[2024-12-22 21:49] LABS: Lipase* 129 U/L (23-300)
[2024-12-22 21:53] LABS: C Reactive Protein* 0.6 mg/dL (0.5-1.0)
[2024-12-22 22:00] VITALS: BP 135/74; PULSE 85; RESP 18; TEMP 36.7; O2SAT 99
[2024-12-22 23:03] LABS: Erythrocyte SedimentationRate* 11 mm/hr (2-20)
[2024-12-23] VITALS: BP 125/70; PULSE 81; RESP 18; TEMP 36.7; O2SAT 99
[2024-12-23 01:56] VITALS: BP 125/70; PULSE 81; RESP 18; TEMP 36.7
[2024-12-24 04:38] LABS: Vitamin D 25 Hydroxy* 45 ng/mL (30-80)
[2024-12-31 12:17] LABS: Ova and Parasite, Fecal Negative (Negative)
== END 2024-12-23 01:56 | disposition home or self-care (01) ==
PROVIDERS: Emergency Provider Family Medicine; PCP Family Medicine
DX: N93.8 Other specified abnormal uterine and vaginal bleeding (principal); K58.9 Irritable bowel syndrome, unspecified; R53.83 Other fatigue; Z79.899 Other long term (current) drug therapy
CPT/HCPCS: 36415; 80048; 80076; 82306; 83690; 83735; 84443; 85025; 85651; 86140; 87045; 87046; 87177; 87209; 87427; 94761; 99283; 99284

== ENCOUNTER 2025-01-16 08:38 | Outpatient (CLI) | payer OTHER, SELFPAY ==
--- NOTE | 2025-01-16 10:44 | P.ANES_ITS ---
Anesthesia Charges Start Date/Time Anesthesia Start Date: 01/16/25 Anesthesia Start Time: 10:01 Stop Date/Time Anesthesia Stop Date: 01/16/25 Anesthesia Stop Time: 10:34 Coding CPT Codes CPT Codes: ANES LWR INTST NDSC NOS - 69738 ([id number]) P3 - PATIENT W/SEVERE SYS DISEASE, QX - DISHTANK OPERATOR SVC W/ MD MED DIRECTION, QK - FILTER CLOTH MAKER 2-4 CNCRNT ANES PROC
--- NOTE | 2025-01-16 10:44 | W.ANESCHARGE ---
Anesthesia Charges Start Date/Time Anesthesia Start Date: 01/16/25 Anesthesia Start Time: 10:01 Stop Date/Time Anesthesia Stop Date: 01/16/25 Anesthesia Stop Time: 10:34 Coding CPT Codes CPT Codes: ANES LWR INTST NDSC NOS - 30945 ([id number]) P3 - PATIENT W/SEVERE SYS DISEASE, QX - PHLEBOTOMIST MEDICAL LAB ASSISTANT SVC W/ MD MED DIRECTION, QK - SEEDLING SORTER 2-4 CNCRNT ANES PROC
--- NOTE | 2025-01-16 11:26 | P.ANES_ITS ---
Anesthesia Charges Start Date/Time Anesthesia Start Date: 01/16/25 Anesthesia Start Time: 10:01 Stop Date/Time Anesthesia Stop Date: 01/16/25 Anesthesia Stop Time: 10:34 Coding CPT Codes CPT Codes: ANES LWR INTST NDSC NOS - 86514 ([id number]) QK - STEAM DRIER TENDER 2-4 CNCRNT ANES PROC, QX - CHOCOLATE PACKER SVC W/ MED DIRECTION, P3 - PATIENT W/SEVERE SYS DISEASE
--- NOTE | 2025-01-16 11:26 | W.ANESCHARGE ---
Anesthesia Charges Start Date/Time Anesthesia Start Date: 01/16/25 Anesthesia Start Time: 10:01 Stop Date/Time Anesthesia Stop Date: 01/16/25 Anesthesia Stop Time: 10:34 Coding CPT Codes CPT Codes: ANES LWR INTST NDSC NOS - [id number] ([id number]) QK - HOTEL NIGHT AUDITOR 2-4 CNCRNT ANES PROC, QX - WRAPPER LAYER AND EXAMINER SOFT WORK SVC W/ MED DIRECTION, P3 - PATIENT W/SEVERE SYS DISEASE
== END 2025-01-16 08:39 | disposition home or self-care (01) ==
LOC: OP CLINIC 08:40
PROVIDERS: PCP Family Medicine; Visit Provider Internal Medicine Gastroenterology
DX: Z12.11 Encounter for screening for malignant neoplasm of colon (principal); K63.3 Ulcer of intestine
CPT/HCPCS: 00811; 45380; 88305; J2704